=== PATIENT | female | born 1975 | race Caucasian/White ===

== ENCOUNTER 2018-11-29 13:27 | Emergency (ER) | payer OTHER ==
[~2018-11-29] VITALS: Ht 157.5 cm; Wt 84.1 kg
[2018-11-29] MEDS ORDERED: KLON1TAB PO (13:40)
[2018-11-29] MEDS ORDERED: ATEN50TA2 PO (13:40)
[2018-11-29] MEDS ORDERED: CITA20TA6 PO (13:40)
[2018-11-29] MEDS ORDERED: OMEP40CA2 PO (13:40)
[2018-11-29] MEDS ORDERED: METOCLOPRAMIDE INJ 10MG/2ML VIAL (J2765) IV ONE (14:00)
[2018-11-29 14:24] LABS: HEMATOCRIT 41.1 % (36.0-47.0); HEMOGLOBIN 13.5 g/dl (12.0-15.5); MEAN CORPUSCULAR HEMOGLOBIN 27.4 pg (27.0-33.0); MEAN CORPUSCULAR HGB CONC 32.8 g/dl (32.0-36.5); MEAN CORPUSCULAR VOLUME 83.4 fl (80.0-96.0); PLATELET COUNT, AUTOMATED 400 10^3/uL (150-450); RED BLOOD COUNT 4.93 10^6/uL (4.00-5.40); WHITE BLOOD COUNT 10.3 10^3/uL (4.0-10.0)
[2018-11-29] MEDS ORDERED: KETOROLAC 30 MG/ML VIAL (J1885) IV ONE (14:45)
[2018-11-29 14:48] LABS: ALBUMIN 3.5 GM/DL (3.2-5.2); ALT/SGPT 18 U/L (12-78); BILIRUBIN,DIRECT < 0.1 MG/DL (0.0-0.2); BILIRUBIN,TOTAL 0.2 MG/DL (0.2-1.0); TOTAL PROTEIN 6.6 GM/DL (6.4-8.2)
--- NOTE | 2018-11-29 16:51 | REP ---
CT BRAIN WITHOUT IV CONTRAST: TECHNIQUE: CT brain performed without IV contrast. Ventricles are normal in size and position. There is no midline shift or mass effect. Sebastian/white differentiation is well maintained. There is no acute intracranial hemorrhage or extra-axial fluid collection. Bone window examination is unremarkable. IMPRESSION: Negative noncontrast CT brain. Electronically Signed by Rhett Sebastian MD 12/01/2018 10:48 A
[2018-11-29 17:04] VITALS: BP 125/67
[2018-11-29] MEDS ORDERED: ZOMI2.5T PO (17:49)
== END 2018-11-29 17:51 | disposition home or self-care (01) ==
LOC: M ED 13:27
DX: G43.109 Migraine with aura, not intractable, without status migrainosus (principal); I10 Essential (primary) hypertension; F41.9 Anxiety disorder, unspecified; Z79.899 Other long term (current) drug therapy
CPT/HCPCS: 70450; 80047; 80076; 84702; 85027; 96374; 96375; 99284; J1885; J2765

== ENCOUNTER → 2019-07-19 | Outpatient (CLI) | payer OTHER ==
[~2019-07-19] MED LIST: ATEN50TA2 PO; CITA20TA6 PO; KLON1TAB PO; OMEP40CA97 PO; ZOMI2.5T PO
== END ==
LOC: M LABSMTC 10:59
PROVIDERS: ATTEND Family Medicine
DX: Z11.59 Encounter for screening for other viral diseases (principal); Z20.828 Contact with and (suspected) exposure to other viral communicable diseases

== ENCOUNTER → 2024-10-12 | Outpatient (RCR) ==
[~2024-10-12] MED LIST changes: -KLON1TAB PO; +KLON1TAB13 PO; +OMEP40CA4 PO; -OMEP40CA97 PO
== END ==
LOC: M EMPSKH 09-20 09:24
PROVIDERS: ATTEND Family Medicine
DX: Z11.52 Encounter for screening for COVID-19 (principal)